=== PATIENT | male | born 1980 | race Two or more races ===

== ENCOUNTER → 2017-09-30 14:04 | Emergency (ER) | payer SELFPAY ==
[~2017-09-30 14:04] MED LIST: Tetan/Diph/Pertus SYR(Tdap)* 0.5 ML SYR(BOOSTRIX) use SYR IM ONE
[2017-09-30 14:12] VITALS: BP 137/85
--- NOTE | 2017-09-30 15:24 | ED ---
Ailin Pñia Nilda, scribed for Tim Dickerson MD on 09/30/17 at 1435 . Bite Injury/Animal - HPI Summary HPI Summary: This patient is a 37 year old M presenting to [facility] with a chief complaint of unprovoked dog bite on posterior left thigh that occurred less than an hour ago. 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 The patient rates the pain 2/10 in severity. Symptoms aggravated by palpation and alleviated by nothing. Pt estimates that last tetanus was 4 years ago. He states he does not know the vaccination status of the animal that bit him. Medications includes Lamotrigine. NKDA. - History of Current Complaint Chief Complaint: EDAnimalBite Stated Complaint: DOG BITE Time Seen by Provider: 09/30/17 14:20 Hx Obtained From: Patient Onset of Injury: Happened minutes ago, Still Present Type of Bite: Pet Hx of Bite: Unprovoked Has Animal Been Immunized?: Unknown Severity Currently: Mild Pain Intensity: 2 Pain Scale Used: 0-10 Numeric Character: Puncture - did not break skin Aggravating Factor(s): Other - palpation Alleviating Factor(s): Other - nothing Associated Signs And Symptoms: Positive: Negative Animal Available for Observation: No PMH/Surg Hx/FS Hx/Imm Hx Sensory History: Denies: Hx Legally Blind EENT History: Denies: Hx Deafness Psychiatric History: Reports: Hx Bipolar Disorder Infectious Disease History: No Infectious Disease History: Denies: Traveled Outside the [place] in Last 30 Days - Social History Occupation: Employed Full-time Review of Systems Negative: Fever Positive: Other - superficial bite wound on left upper thigh All Other Systems Reviewed And Are Negative: Yes Physical Exam - Summary Physical Exam Summary: Appearance: Well-appearing, Well-nourished Skin: Warm, Dry, 4 superficial patel that barely broke the skin, no signs of cellulitis on posterior left thigh. Eyes: Normal, PERRL, EOMI, sclera anicteric ENT: Normal Neck: Supple, nontender Respiratory: Clear to auscultation Cardiovascular: S1, S2, no murmur, no rub, no gallop Abdomen: Soft, nontender, no organomegaly Bowel sounds: Present Musculoskeletal: Normal, Strength/ROM Intact, no edema, pulses symmetrical Neurological: Normal, A&Ox3, cranial nerves II-XII WNL, follows commands, gait not tested, sensation intact to pin and light touch Psychiatric: affect normal, behavior appropriate, dressed appropriately, judgment intact Triage Information Reviewed: Yes Vital Signs On Initial Exam: Initial Vitals Temp Pulse Resp BP Pulse Ox 97.6 F 66 16 137/85 99 09/30/17 14:06 09/30/17 14:06 09/30/17 14:06 09/30/17 14:06 09/30/17 14:06 Vital Signs Reviewed: Yes Diagnostics - Vital Signs Vital Signs Temp Pulse Resp BP Pulse Ox 09/30/17 14:06 97.6 F 66 16 137/85 99 - Laboratory Lab Statement: Any lab studies that have been ordered have been reviewed, and results considered in the medical decision making process. Bite Injury Course/Dx - Course Assessment/Plan: This patient is a 37 year old M presenting to [facility] with a chief complaint of unprovoked dog bite on posterior left thigh that occurred less than an hour ago. 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 The patient rates the pain 2/10 in severity. Symptoms aggravated by palpation and alleviated by nothing. Pt estimates that last tetanus was 4 years ago. He states he does not know the vaccination status of the animal that bit him. Medications includes Lamotrigine. NKDA. Plan to lavage wound with Hibiclens, TD vaccine, Augmentin course. Wound was dressed. Pt is stable and will be D/C with a diagnosis of animal bite and prescription for Augmentin. Pt understands and is agreeable with this plan. - Diagnoses Provider Diagnosis: Animal bite of left thigh Discharge - Discharge Plan Condition: Good Disposition: HOME Prescriptions: Amoxicillin/Clavulanate TAB* [Augmentin TAB 875*] 875 mg PO BID 5 Days #10 tab Patient Education Materials: Animal Bite (ED) Additional Instructions: follow up with health department follow up with primary care doctor The documentation as recorded by the Ailin mcfarland Nilda accurately reflects the service I personally performed and the decisions made by me, Tmi Dickerson MD.
== END | disposition home or self-care (01) ==
LOC: ED 14:04
DX: S71.152A Open bite, left thigh, initial encounter (principal); W54.0XXA Bitten by dog, initial encounter; Y93.9 Activity, unspecified; Y92.9 Unspecified place or not applicable
CPT/HCPCS: 90715; 99282